=== PATIENT | female | born 1950 | race Caucasian/White ===

== ENCOUNTER 2019-08-08 10:56 | Day surgery (SDC) | payer OTHER ==
[2019-08-05 10:00] VITALS: BMI 39.9
--- NOTE | 2019-08-08 14:01 | OP ---
DATE OF PROCEDURE: 08/08/2019 PROCEDURE PERFORMED: Colonoscopy with snare polypectomy. MEDICATION: Given by Anesthesiology Department. PREPROCEDURE DIAGNOSIS: History of colon polyps. POSTPROCEDURE DIAGNOSES: 1. Transverse polyp and descending colon polyps. 2. Otherwise, normal colon exam. DESCRIPTION OF PROCEDURE: Written consents were obtained prior to procedure. After adequate sedation, a rectal exam was performed and was normal. The endoscope was advanced to the cecum. The quality of the bowel prep was good. The ileocecal valve and appendiceal orifice were visualized, appeared normal. The cecum, ascending colon, hepatic flexure, appeared normal. In the mid transverse colon, a 4 mm sessile polyp was noted and was removed with a cold snare. The splenic flexure appeared normal. In proximal descending colon, a 10 mm sessile polyp was noted. This polyp was removed with electrocautery snare with good hemostasis. The polyp was retrieved. Mucosal defect was closed with a hemoclip to prevent perforation. The descending colon and the sigmoid colon appeared normal. Retroflexion did not show any abnormality. The patient tolerated the procedure well. ASSESSMENT: 1. Transverse colon polyp and descending colon polyp, status post polypectomies. 2. Otherwise, normal colon exam. RECOMMENDATION: Await biopsy results. Job ID: [id number]
[2019-08-08] MEDS ORDERED: PROPOFOL 200 MG/20 ML VIAL ONE (14:29)
[2019-08-08] MEDS ORDERED: Lidocaine 1% PF 5 ML VIAL ONE (14:29)
== END 2019-08-08 14:48 | disposition home or self-care (01) ==
LOC: SDC 10:56
PROVIDERS: ATTEND Internal Medicine Gastroenterology
PROC: 0DBL8ZZ Excision of Transverse Colon, Via Natural or Artificial Opening Endoscopic (ICD-10-PCS; principal; 2019-08-08)
PROC: 0DBM8ZZ Excision of Descending Colon, Via Natural or Artificial Opening Endoscopic (ICD-10-PCS; principal; 2019-08-08)
DX: Z12.11 Encounter for screening for malignant neoplasm of colon (principal); D12.3 Benign neoplasm of transverse colon; D12.4 Benign neoplasm of descending colon; I11.0 Hypertensive heart disease with heart failure; I50.9 Heart failure, unspecified; E78.00 Pure hypercholesterolemia, unspecified; E11.9 Type 2 diabetes mellitus without complications; K21.9 Gastro-esophageal reflux disease without esophagitis; Z86.010 Personal history of colon polyps; Z79.82 Long term (current) use of aspirin; Z79.84 Long term (current) use of oral hypoglycemic drugs; Z79.899 Other long term (current) drug therapy; Z88.6 Allergy status to analgesic agent; Z91.041 Radiographic dye allergy status; Z91.048 Other nonmedicinal substance allergy status
CPT/HCPCS: 36416; 88305; J2001; J2704

== ENCOUNTER 2019-08-25 12:24 | Emergency (ER) | payer OTHER ==
[2019-08-25 12:57] LABS: #Basophils 0.1 thou/uL (0.0-0.2); #Eosinphils 0.2 thou/uL (0.0-0.7); #Lymphocytes 1.5 thou/uL (1.20-3.40); #Monocytes 0.4 thou/uL (0.11-0.59); #Neutrophils 6.1 thou/uL (1.40-6.50); %Basophils 0.7 % (0.0-1.0); %Eosinophils 2.7 % (0.0-10.0); %Lymphocytes 18.3 % (21.0-51.0); %Monocytes 4.5 % (0.0-10.0); %Neutrophils 73.7 % (42.0-75.0); Mean Corpuscular HGB CONC 33.2 g/dL (32.0-36.0); Mean Corpuscular Hemoglobin 30.3 pg (27.0-31.0); Mean Corpuscular Volume 91.2 fL (78.0-98.0); Mean Platelet Volume 9.8 fL (7.4-10.4); Platelet Count 203 thou/uL (130-400); RBC Distribution Width 15.5 % (11.5-14.5); Red Blood Cell (RBC) Count 3.96 mill/uL (4.20-5.40); White Blood Cell (WBC) Count 8.2 thou/uL (4.8-10.8)
--- NOTE | 2019-08-25 13:07 | RAD ---
EXAM: Portable chest PROVIDED CLINICAL HISTORY: Chest pain COMPARISON: None FINDINGS: Cardiac silhouette appears enlarged, which may be least partially on the basis of portable technique. No focal consolidation, pleural fluid or pneumothorax evident. IMPRESSION: No evidence for an acute cardiopulmonary process.
[2019-08-25 13:20] LABS: ALT (SGPT) 18 U/L (8-55); AST (SGOT) 15 U/L (5-34); Albumin 4.3 g/dL (3.4-4.8); Alkaline Phosphatase 101 U/L (40-110); Anion Gap 15 mmol/L (10-20); BUN (Urea Nitrogen) 36 mg/dL (9.8-20.1); Bilirubin, Total 0.3 mg/dL (0.2-1.2); CK (CPK) 63 U/L (29-168); Calc. Creatinine Clearance 0 mL/min (70-130); Calcium 9.4 mg/dL (7.8-10.44); Carbon Dioxide 21 mmol/L (23-31); Chloride 107 mmol/L (98-107); Estimated GFR-MDRD 42; Globulin 2.6 g/dL (2.4-3.5); Glucose 86 mg/dL (83-110); Lipase 29 U/L (8-78); Potassium 4.2 mmol/L (3.5-5.1); Protein, Total 6.9 g/dL (6.0-8.3); Sodium 139 mmol/L (136-145)
[2019-08-25] MEDS ORDERED: Nitroglycerin 0.4 MG TAB 1 EACH ONE (13:29)
[2019-08-25] MEDS ORDERED: Aspirin Chewable 81 MG TAB ONE (13:29)
[2019-08-25 18:58] LABS: Troponin I Less than 0.010 ng/mL (< 0.028)
--- NOTE | 2019-08-28 01:33 | EKG ---
Test Reason : Blood Pressure : / mmHG Vent. Rate : 066 BPM Atrial Rate : 066 BPM P-R Int : 194 ms QRS Dur : 098 ms QT Int : 410 ms P-R-T Axes : 077 -04 132 degrees QTc Int : 429 ms Normal sinus rhythm Left ventricular hypertrophy with repolarization abnormality Cannot rule out Septal infarct , age undetermined Abnormal ECG Confirmed by JOCELYN GAMEZ ([id number]), desk editor INDRA BROCK ([id number] on 08/28/2019 1:32:45 AM Referred By: Confirmed By:JOCELYN Armendariz
== END 2019-08-25 20:59 ==
LOC: ERS 12:24
DX: R07.9 Chest pain, unspecified (principal); I11.0 Hypertensive heart disease with heart failure; I50.9 Heart failure, unspecified; E11.9 Type 2 diabetes mellitus without complications; M19.90 Unspecified osteoarthritis, unspecified site; J44.9 Chronic obstructive pulmonary disease, unspecified; G62.9 Polyneuropathy, unspecified; Z87.891 Personal history of nicotine dependence; Z79.84 Long term (current) use of oral hypoglycemic drugs; Z79.899 Other long term (current) drug therapy; Z79.82 Long term (current) use of aspirin
CPT/HCPCS: 36415; 71045; 80053; 82550; 83690; 83880; 84484; 85025; 93005; 94760

== ENCOUNTER 2019-09-30 15:34 | Observation (INO) | payer MEDICARE, OTHER ==
--- NOTE | 2019-09-30 17:16 | CT ---
CT OF BRAIN PERFORMED WITHOUT CONTRAST ENHANCEMENT: 09/30/19 HISTORY: Fall yesterday, fainted today. History of congestive heart failure. The ventricular and cisternal system is within normal limits. Some decreased attenuation of the periv entricular white matter consistent with some chronic white matter change. No signs of intracerebral h emorrhage or extra-axial fluid collections. Mastoid air cells and visualized sinuses are clear. IMPRESSION: No acute intracranial abnormalities. POS: SALVADOR
[2019-09-30 17:42] LABS: #Eosinphils 0.2 thou/uL (0.0-0.7); #Lymphocytes 1.7 thou/uL (1.20-3.40); #Monocytes 0.5 thou/uL (0.11-0.59); #Neutrophils 5.1 thou/uL (1.40-6.50); %Basophils 0.4 % (0.0-1.0); %Eosinophils 3.2 % (0.0-10.0); %Lymphocytes 22.4 % (21.0-51.0); %Neutrophils 67.9 % (42.0-75.0); Hemoglobin 11.9 g/dL (12.0-16.0); Mean Corpuscular Hemoglobin 30.2 pg (27.0-31.0); Mean Corpuscular Volume 91.6 fL (78.0-98.0); Mean Platelet Volume 9.4 fL (7.4-10.4); Platelet Count 200 thou/uL (130-400); RBC Distribution Width 15.6 % (11.5-14.5); Red Blood Cell (RBC) Count 3.95 mill/uL (4.20-5.40); White Blood Cell (WBC) Count 7.5 thou/uL (4.8-10.8)
[2019-09-30 18:06] LABS: ALT (SGPT) 11 U/L (8-55); AST (SGOT) 13 U/L (5-34); Albumin 4.4 g/dL (3.4-4.8); Alkaline Phosphatase 89 U/L (40-110); Anion Gap 20 mmol/L (10-20); BUN (Urea Nitrogen) 57 mg/dL (9.8-20.1); Bilirubin, Total 0.2 mg/dL (0.2-1.2); Calc. Creatinine Clearance 0 mL/min (70-130); Calcium 9.5 mg/dL (7.8-10.44); Carbon Dioxide 22 mmol/L (23-31); Chloride 102 mmol/L (98-107); Estimated GFR-MDRD 21; Globulin 3.1 g/dL (2.4-3.5); Glucose 79 mg/dL (83-110); Lipase 34 U/L (8-78); Potassium 3.6 mmol/L (3.5-5.1); Protein, Total 7.5 g/dL (6.0-8.3); Sodium 140 mmol/L (136-145)
--- NOTE | 2019-09-30 18:52 | RAD ---
PORTABLE CHEST: 09/30/19 HISTORY: Patient fell yesterday. Fainted today. COMPARISON: 08/25/19 study. Heart size is borderline for portable technique. Some atherosclerotic changes of the aorta. The lung s are clear of infiltrates. No significant bony findings. IMPRESSION: Borderline heart size. POS: SAL[facility]ADOR
[2019-09-30] MEDS ORDERED: Dextrose 5% in Water 1,000 ML IV PRN (20:23)
[2019-09-30] MEDS ORDERED: HumaLOG 300 UNITS/3 ML VIAL SC PRN (20:23)
[2019-09-30] MEDS ORDERED: Dextrose 50% Abboject 50 ML SYRINGE SLOW IVP PRN (20:23)
[2019-09-30 20:38] VITALS: BMI 37.5
[2019-09-30 20:47] LABS: Troponin I Less than 0.010 ng/mL (< 0.028)
[2019-09-30] MEDS: Sodium Chloride 0.9% 1,000 ML IV SCH (20:57)
[2019-09-30] MEDS ORDERED: Famotidine 20 MG TAB PO SCH (21:00)
--- NOTE | 2019-09-30 21:00 | HP ---
CHIEF COMPLAINT: Weakness and dizziness. HISTORY OF PRESENT ILLNESS: Ms. Tyler is a 69-year-old female with past medical history of congestive heart failure, diabetes mellitus, hypertension, among others, presents to the emergency room with weakness and dizziness. The patient stated that she had brain tumor as well noted on the MRI? The patient did have CT of the brain here, but no significant abnormality was noted. Workup in the emergency room, the patient had an acute kidney injury with elevated creatinine. As per the patient, she has been taking amlodipine by mistake, which she was told by her physician to stop earlier. Her blood pressure was as low as 65/40 at home. The patient was orthostatic in the emergency room. EKG, sinus rhythm with first-degree AV block. The patient started cautiously on IV fluids. The patient is being admitted to hospital for further management. PAST MEDICAL HISTORY: 1. Congestive heart failure. 2. Diabetes mellitus, type 2. 3. Hypertension. 4. Arthritis. 5. Chronic obstructive pulmonary disease. 6. Neuropathy. PAST SURGICAL HISTORY: 1. Hysterectomy. 2. Tonsillectomy. 3. Appendectomy. SOCIAL HISTORY: Denies alcohol drinking. She is a former smoker, quit smoking more than 10 years ago. FAMILY HISTORY: Reviewed and noncontributory. HOME MEDICATIONS: Please see home medication reconciliation form for updated medications. ALLERGIES: ALLERGIC TO ASPIRIN, POVIDONE, AND SOAP. REVIEW OF SYSTEMS: Review of 14 systems negative except what is mentioned in history of present illness. PHYSICAL EXAMINATION: VITAL SIGNS: Blood pressure 100/40, pulse is 68, respiratory rate is 16, and temperature 98.2. HEAD AND NECK: Normocephalic and atraumatic. NECK: Supple. No JVD. CHEST: Fair bilateral air entry. HEART: S1 and S2. Regular. ABDOMEN: Soft, nontender. Bowel sounds present. NEUROLOGIC: Awake, alert, and oriented x3. PSYCH: Normal mood. EXTREMITIES: No clubbing, no cyanosis. GENITOURINARY: No suprapubic tenderness. No flank tenderness. LABORATORY DATA: Imaging studies as mentioned above in history of present illness. WBC count 7.5, hemoglobin 11.9, platelets 200. Sodium 140, potassium 3.6, BUN is 57, creatinine 2.3. Troponin 0.01. ASSESSMENT: 1. Dizziness, probably secondary to hypotension. 2. Acute renal failure. 3. Congestive heart failure, chronic. 4. Diabetes mellitus. PLAN: 1. Admit. 2. Telemetry monitoring. 3. Orthostatic vital signs. 4. Cautious IV fluids tonight given her history of congestive heart failure, reassess in a.m. 5. Monitor kidney function and urine output. 6. Reconcile home medications. 7. DVT prophylaxis as appropriate. 8. Expected length of stay at least 1 midnight and the patient show significant clinical improvement. Job ID: [id number]
[2019-09-30] MEDS: Acetaminophen 325 MG TAB PO PRN (21:02)
[2019-09-30] MEDS: Heparin 5,000 UNITS/ML VIAL SC SCH (21:03)
[2019-09-30] MEDS ORDERED: Albuterol Sulfate 1.25 MG/3 ML NEB NEB PRN (21:49)
[2019-09-30 23:55] LABS: Troponin I Less than 0.010 ng/mL (< 0.028)
[2019-10-01] MEDS: Acetaminophen 325 MG TAB PO PRN ×3 (04:16→20:32)
[2019-10-01 05:30] LABS: #Eosinphils 0.2 thou/uL (0.0-0.7); #Lymphocytes 1.3 thou/uL (1.20-3.40); #Monocytes 0.3 thou/uL (0.11-0.59); #Neutrophils 3.7 thou/uL (1.40-6.50); %Basophils 0.4 % (0.0-1.0); %Eosinophils 3.9 % (0.0-10.0); %Monocytes 4.7 % (0.0-10.0); %Neutrophils 67.1 % (42.0-75.0); Hemoglobin 10.2 g/dL (12.0-16.0); Mean Corpuscular HGB CONC 32.8 g/dL (32.0-36.0); Mean Corpuscular Hemoglobin 29.8 pg (27.0-31.0); Mean Corpuscular Volume 90.7 fL (78.0-98.0); Mean Platelet Volume 9.9 fL (7.4-10.4); Platelet Count 197 thou/uL (130-400); RBC Distribution Width 15.7 % (11.5-14.5); Red Blood Cell (RBC) Count 3.44 mill/uL (4.20-5.40); White Blood Cell (WBC) Count 5.6 thou/uL (4.8-10.8)
[2019-10-01 05:53] LABS: Anion Gap 15 mmol/L (10-20); BUN (Urea Nitrogen) 52 mg/dL (9.8-20.1); Calc. Creatinine Clearance 49 mL/min (70-130); Carbon Dioxide 22 mmol/L (23-31); Chloride 106 mmol/L (98-107); Estimated GFR-MDRD 28; Glucose 121 mg/dL (83-110); Potassium 3.5 mmol/L (3.5-5.1); Sodium 139 mmol/L (136-145)
[2019-10-01] MEDS: Sodium Chloride 0.9% 1,000 ML IV SCH ×2 (06:14→14:18)
[2019-10-01] MEDS: Allopurinol 300 MG TAB PO SCH (08:28)
[2019-10-01] MEDS: Isosorbide Mononitrate (ER) 30 MG TAB PO SCH (08:28)
[2019-10-01] MEDS: Gabapentin 300 MG CAP PO SCH ×3 (08:28→20:32)
[2019-10-01] MEDS: Aspirin 81 mg Enteric Coated Tablet PO SCH (08:28)
[2019-10-01] MEDS: Heparin 5,000 UNITS/ML VIAL SC SCH ×2 (08:29→20:33)
--- NOTE | 2019-10-01 13:55 | PDOC.HOSPP ---
- Subjective Encounter Date: 10/01/19 Encounter Time: 07:40 Subjective: Pt seen for followup re: acute on chronic stage 3 renal failure. Feels better. - Objective Vital Signs & Weight: Vital Signs (12 hours) Temp Pulse Resp BP BP BP BP 10/01/19 11:02 98.2 F 67 16 130/61 10/01/19 07:53 98.3 F 63 20 122/59 L 110/57 L 112/56 L 10/01/19 04:55 97.9 F 65 18 100/54 L Pulse Ox 10/01/19 11:02 96 10/01/19 07:53 95 10/01/19 04:55 95 Weight Weight 239 lb 11.2 oz I&O: 09/30/19 10/01/19 10/02/19 06:59 06:59 06:59 Intake Total 1230 Output Total 1000 Balance 230 Result Diagrams: 10/01/19 04:53 10/01/19 04:53 Additional Labs: Accuchecks 10/01/19 09/30/19 11:08 20:28 POC Glucose 148 H 91 Labs and MARs reviewed by me EKG Reviewed by me: Yes (Tele; NSR) Hospitalist ROS - Review of Systems Cardiovascular: denies: chest pain, palpitations, orthopnea, paroxysmal noc. dyspnea, edema, light headedness Gastrointestinal: denies: nausea, vomiting, abdominal pain, diarrhea, constipation, melena, hematochezia - Medication Medications: Active Medications Generic Name Dose Route Start Last Admin Trade Name Freq PRN Reason Stop Dose Admin Acetaminophen 650 mg 09/30/19 19:37 10/01/19 04:16 Tylenol PO 650 mg Q4H PRN Administration Headache/Fever/Mild Pain (1-3) Allopurinol 300 mg 10/01/19 09:00 10/01/19 08:28 Zyloprim PO 300 mg DAILY SARA Administration Aspirin 81 mg 10/01/19 09:00 10/01/19 08:28 Ecotrin PO 81 mg DAILY SARA Administration Gabapentin 600 mg 10/01/19 09:00 10/01/19 08:28 Neurontin PO 600 mg TID SARA Administration Heparin Sodium (Porcine) 5,000 units 09/30/19 21:00 10/01/19 08:29 Heparin SC 5,000 units BID SARA Administration Sodium Chloride 1,000 mls @ 75 mls/hr 09/30/19 19:45 10/01/19 06:14 Normal Saline 0.9% IV 1,000 mls .[id number] SARA Administration Isosorbide Mononitrate 15 mg 10/01/19 09:00 10/01/19 08:28 Imdur Er PO 15 mg DAILY SARA Administration Pantoprazole Sodium 40 mg 10/01/19 09:00 10/01/19 08:34 Protonix PO 40 mg DAILY SARA Administration Sodium Chloride 10 ml 09/30/19 21:00 10/01/19 08:29 Flush - Normal Saline IVF 10 ml Q12HR SARA Administration - Exam General Appearance: awake alert Eye: anicteric sclera ENT: moist mucosa Neck: supple, no JVD Heart: RRR Respiratory: CTAB, no rales Gastrointestinal: soft Extremities: no cyanosis Psychiatric: normal affect, normal behavior Hosp A/P (1) Acute worsening of stage 3 chronic kidney disease Code(s): N18.3 - CHRONIC KIDNEY DISEASE, STAGE 3 (MODERATE) Status: Acute (2) DM2 (diabetes mellitus, type 2) Status: Chronic (3) HTN (hypertension) Code(s): I10 - ESSENTIAL (PRIMARY) HYPERTENSION Status: Chronic - Plan Renal failure improving, continue IV fluids. Decrease IV fluids to 50 ml/hr. Continue to hold Losartan and metformin.
[2019-10-01] MEDS ORDERED: Non-Formulary Item 1 EACH (Insulin Detemir [Levemir] 20 UNIT) SQ SCH (21:00)
[2019-10-01] MEDS ORDERED: Magnesium 2 GM/50 ML 2 GM in Premix Bag 1 BAG IVPB SCH (23:00)
[2019-10-02] MEDS: Sodium Chloride 0.9% 1,000 ML IV SCH (00:12)
[2019-10-02] MEDS: Acetaminophen 325 MG TAB PO PRN ×3 (00:21→15:42)
[2019-10-02 04:40] LABS: #Basophils 0.1 thou/uL (0.0-0.2); #Eosinphils 0.3 thou/uL (0.0-0.7); #Lymphocytes 1.4 thou/uL (1.20-3.40); #Monocytes 0.4 thou/uL (0.11-0.59); #Neutrophils 2.7 thou/uL (1.40-6.50); %Basophils 1.1 % (0.0-1.0); %Eosinophils 5.9 % (0.0-10.0); %Lymphocytes 29.4 % (21.0-51.0); %Monocytes 7.7 % (0.0-10.0); Hemoglobin 10.7 g/dL (12.0-16.0); Mean Corpuscular HGB CONC 33.7 g/dL (32.0-36.0); Mean Corpuscular Hemoglobin 31.7 pg (27.0-31.0); Mean Platelet Volume 9.7 fL (7.4-10.4); Platelet Count 178 thou/uL (130-400); RBC Distribution Width 15.9 % (11.5-14.5); Red Blood Cell (RBC) Count 3.39 mill/uL (4.20-5.40); White Blood Cell (WBC) Count 4.9 thou/uL (4.8-10.8)
[2019-10-02 05:00] LABS: Calcium 8.6 mg/dL (7.8-10.44); Chloride 109 mmol/L (98-107); Potassium 3.7 mmol/L (3.5-5.1); Sodium 137 mmol/L (136-145)
[2019-10-02 05:06] LABS: Glucose 194 mg/dL (83-110)
[2019-10-02 05:08] LABS: Carbon Dioxide 16 mmol/L (23-31)
[2019-10-02 05:10] LABS: BUN (Urea Nitrogen) 29 mg/dL (9.8-20.1); Calc. Creatinine Clearance 72 mL/min (70-130); Estimated GFR-MDRD 43
[2019-10-02 05:27] LABS: Anion Gap 16 mmol/L (10-20)
[2019-10-02] MEDS: Isosorbide Mononitrate (ER) 30 MG TAB PO SCH (08:04)
[2019-10-02] MEDS: Gabapentin 300 MG CAP PO SCH ×2 (08:04→15:41)
[2019-10-02] MEDS: Aspirin 81 mg Enteric Coated Tablet PO SCH (08:04)
[2019-10-02] MEDS: Allopurinol 300 MG TAB PO SCH (08:04)
[2019-10-02] MEDS: Heparin 5,000 UNITS/ML VIAL SC SCH (08:05)
[2019-10-02 11:14] VITALS: TEMP 98.1
[2019-10-02 15:07] VITALS: BP 145/64
[2019-10-03] MEDS ORDERED: Carvedilol 3.125 MG TAB PO SCH (08:00)
--- NOTE | 2019-10-03 08:49 | DIS ---
DATE OF ADMISSION: 09/30/2019 DATE OF DISCHARGE: 10/02/2019 PRIMARY CARE PROVIDER: [facility] in [place]. DISCHARGE DIAGNOSES: 1. Acute on chronic stage 3 renal failure. 2. Iatrogenic hypotension. 3. Dizziness secondary to hypotension. 4. Hypomagnesemia. CONDITION OF PATIENT ON THE DAY OF DISCHARGE: Stable. I assessed Ms. Tyler on the day of discharge. She denies any chest pain, shortness of breath, or dizziness. Vital signs are stable. S1 and S2 are heard, regular. Lungs are clear to auscultation bilaterally. DISCHARGE MEDICATIONS: She has been advised to stop metformin and losartan until okayed by primary care provider to resume based on renal function. Hydrochlorothiazide was discontinued. Coreg dose has been decreased to 3.125 mg 2 times a day. Nifedipine was discontinued. Otherwise, no change was made to her pre-admission home medications, which include; 1. Allopurinol 300 mg daily. 2. Amitriptyline 25 mg at bedtime. 3. Aspirin 81 mg daily. 4. Cranberry extract 200 mg daily. 5. Trulicity 1.5 mg subcutaneously every week. 6. Ferrous sulfate 325 mg daily. 7. Gabapentin 600 mg 3 times a day. 8. Aspart insulin 10 units daily. 9. Levemir insulin 20 units at bedtime. 10. Imdur 15 mg daily. 11. Protonix 40 mg daily. 12. Albuterol p.r.n. HOSPITAL COURSE: Ms. Tyler is a pleasant 69-year-old lady, who was admitted to [facility] on September 30, 2019 for acute on chronic renal failure, dizziness, and hypotension. Her antihypertensives were held. She received intravenous hydration. She improved clinically. Creatinine improved to 1.24 on the day of discharge. She has been started on decreased dose of Coreg and some of her antihypertensives were on hold. Losartan and metformin were held secondary to renal insufficiency. She has been advised to resume them when cleared by primary care provider based on renal function. On the day of discharge, she has white count of 4900, hemoglobin 10.7, platelet count 178,000. Sodium 137, potassium 3.7, creatinine 1.24, and magnesium 2.0. POST ACUTE CARE FOLLOWUP: With primary care provider in 3 to 5 days time. DIET: Heart healthy and diabetic diet. ACTIVITY: As tolerated. DISCHARGE DESTINATION: Home. Many thanks for allowing me to participate in your patient's care. Please feel free to contact me with any questions or concerns. Job ID: [id number]
--- NOTE | 2019-10-05 13:56 | EKG ---
Test Reason : Blood Pressure : / mmHG Vent. Rate : 067 BPM Atrial Rate : 067 BPM P-R Int : 214 ms QRS Dur : 110 ms QT Int : 450 ms P-R-T Axes : 025 -04 142 degrees QTc Int : 475 ms Sinus rhythm with 1st degree A-V block Left ventricular hypertrophy with repolarization abnormality Cannot rule out Septal infarct , age undetermined Abnormal ECG Confirmed by KULDIP AWAN DO ([id number]), advertising editor INDRA BROCK ([id number]) on 10/05/2019 1:55:35 PM Referred By: Confirmed By:KULDIP AWAN DO
== END 2019-10-02 19:12 | disposition home or self-care (01) ==
LOC: ERS 15:34 → 2SW 19:01
PROVIDERS: ADMIT Internal Medicine; ATTEND Internal Medicine
DX: I95.89 Other hypotension (principal); I13.0 Hypertensive heart and chronic kidney disease with heart failure and stage 1 through stage 4 chronic kidney disease, or unspecified chronic kidney disease; I50.9 Heart failure, unspecified; E11.22 Type 2 diabetes mellitus with diabetic chronic kidney disease; E11.40 Type 2 diabetes mellitus with diabetic neuropathy, unspecified; N18.3 Chronic kidney disease, stage 3 (moderate); N17.9 Acute kidney failure, unspecified; E83.42 Hypomagnesemia; J44.9 Chronic obstructive pulmonary disease, unspecified; I44.0 Atrioventricular block, first degree; Z79.4 Long term (current) use of insulin; Z79.82 Long term (current) use of aspirin; Z79.899 Other long term (current) drug therapy; Z87.891 Personal history of nicotine dependence; Z88.6 Allergy status to analgesic agent; Z88.8 Allergy status to other drugs, medicaments and biological substances
CPT/HCPCS: 36415; 36416; 70450; 71045; 80048; 80053; 83690; 83735; 83880; 84484; 85025; 93005; 96360; 96361; 96365; G0378; J1644; J3475